=== PATIENT | female | born 1985 | race Caucasian/White ===

== ENCOUNTER → 2020-03-12 | Emergency (ER) | payer MEDICAID ==
[~2020-03-12] VITALS: Ht 149.9 cm; Wt 70.4 kg
[2020-03-12 15:02] VITALS: BP 137/50
--- NOTE | 2020-03-12 15:24 | NUR ---
PT AMBULATED BACK TO ROOM 5, PT ASKING THAT FRIEND BE SEEN A PT IN SAME ROOM. PT INFORMED THAT THEY WILL BE SEEN IN SEPARATE ROOMS. PT STATES "WELL I AM LEAVING". PT YELLING IN HALLWAY "CONNIE WE ARE LEAVING".
== END ==
LOC: ED 15:20
DX: R07.89 Other chest pain (principal)
CPT/HCPCS: 93005; 99283